=== PATIENT | female | born 1975 | race Hispanic/Latino ===

== ENCOUNTER 2017-06-27 18:32 | Emergency (ER) | payer OTHER ==
[2017-06-27 18:55] VITALS: BP 115/72; PULSE 84; RESP 16; TEMP 98; O2SAT 100
--- NOTE | 2017-06-27 19:04 | ED PDOC ---
Upper Extremity Pain/Injury Time Seen by Provider: 06/27/17 18:55 Chief Complaint (Nursing): Finger,Hand,&Wrist Chief Complaint (Provider): Right Hand Injury History Per: Patient History/Exam Limitations: no limitations Onset/Duration Of Symptoms: Hrs Current Symptoms Are (Timing): Still Present Additional Complaint(s): Neda Barrientos is a 42 year old right-hand dominant female that presents to the ED with a chief complaint of a right hand injury that occurred four hours prior to arrival. Patient reports that she "dropped a shelf on her hand" while at home earlier today, and that she took an Aleve which helped somewhat with pain. PMD: Dr. Immanuel Freed Past Medical History Reviewed: Historical Data, Nursing Documentation, Vital Signs Vital Signs: Last Vital Signs Temp 98.0 F 06/27/17 18:51 Pulse 84 06/27/17 18:51 Resp 16 06/27/17 18:51 BP 115/72 06/27/17 18:51 Pulse Ox 100 06/27/17 18:51 - Medical History PMH: Asthma - Surgical History Other surgeries: Nasal Surgery - Family History Family History: States: No Known Family Hx - Living Arrangements Living Arrangements: With Family - Social History Current smoker - smoking cessation education provided: No Alcohol: None Drugs: Denies - Home Medications Home Medications: Ambulatory Orders Medication Instructions Recorded Ondansetron ODT [Zofran ODT] 4 mg PO TID #21 odt 03/10/16 - Allergies Allergies/Adverse Reactions: Allergies Allergy/AdvReac Type Severity Reaction Status Date / Time codeine Allergy VOMITING Verified 06/27/17 18:51 Review of Systems ROS Statement: Except As Marked, All Systems Reviewed And Found Negative Musculoskeletal: Positive for: Hand Pain (right hand injury) Physical Exam - Reviewed Nursing Documentation Reviewed: Yes Vital Signs Reviewed: Yes - Physical Exam Appears: Positive for: Well, Non-toxic, No Acute Distress Skin: Positive for: Normal Color. Negative for: Rash Eye Exam: Positive for: Normal appearance Pulses-Radial (L): 2+ Pulses-Radial (R): 2+ Extremity: Positive for: Normal ROM (full ROM all digits of right hand ), Tenderness (TTP dorsal aspect right hand. No snuffbox tenderness of right wrist. ), Swelling (Swelling to dorsal aspect of right hand) Neurologic/Psych: Positive for: Alert, Oriented. Negative for: Motor/Sensory Deficits - ECG O2 Sat by Pulse Oximetry: 100 (RA) Pulse Ox Interpretation: Normal - Other Rad Right hand x-ray X-Ray: Interpreted by Me, Viewed By Me X-Ray Interpretation: no fx, no dis Medical Decision Making Medical Decision Making: Impression: 42 year old right hand dominant female with right hand injury Plan: * X-Ray Right Hand * Reevaluation X-Ray shows no sign of fracture. Patient made aware of X-Ray results, all questions answered. Patient advised to keep affected area elevated and iced, and to take Aleve or Motrin for pain as necessary. Advised patient to follow up with hand specialist if symptoms persist. Stable for discharge home. Scribe Attestation: Documented by Bri Bowman, acting as a scribe for Laura Driscoll PA-C. Provider Scribe Attestation: All medical record entries made by the Scribe were at my direction and personally dictated by me. I have reviewed the chart and agree that the record accurately reflects my personal performance of the history, physical exam, medical decision making, and the department course for this patient. I have also personally directed, reviewed, and agree with the discharge instructions and disposition. Disposition - Clinical Impression Clinical Impression: Hand contusion - Patient ED Disposition Is Patient to be Admitted: No Counseled Patient/Family Regarding: Studies Performed, Diagnosis, Need For Followup - Disposition Referrals: Livier Alejandra MD [Staff Provider] - Disposition: Routine/Home Disposition Time: 19:15 Condition: STABLE Additional Instructions: Ice, rest and elevate affected area. Aleve or motrin as needed for pain. Follow up with primary care doctor or with hand specialist as needed for any persistent symptoms. Instructions: Contusion in Adults (ED), Hand Sprain (ED) Forms: [employer] (Indonesian)
--- NOTE | 2017-06-28 07:25 | RAD ---
PROCEDURE: Right hand Radiographs. HISTORY: trauma COMPARISON: None. FINDINGS: BONES: Normal. No fracture. JOINTS: Normal. No dislocation. SOFT TISSUES: Normal. OTHER FINDINGS: None. IMPRESSION: Normal right hand radiographs.
== END 2017-06-27 19:21 | disposition home or self-care (01) ==
LOC: H.ER 18:32
DX: S60.221A Contusion of right hand, initial encounter (principal); W22.8XXA Striking against or struck by other objects, initial encounter; Y92.89 Other specified places as the place of occurrence of the external cause

== ENCOUNTER 2017-12-16 19:51 | Emergency (ER) | payer OTHER ==
[2017-12-16 20:10] VITALS: BP 122/83; PULSE 96; RESP 16; TEMP 97.9; O2SAT 100
== END 2017-12-16 20:45 | disposition left against medical advice (07) ==
LOC: H.ER 19:51
DX: Z02.89 Encounter for other administrative examinations (principal)

== ENCOUNTER 2018-06-17 15:36 | Emergency (ER) | payer OTHER ==
--- NOTE | 2018-06-17 17:01 | ED PDOC ---
Lower Extremity Pain/Injury Time Seen by Provider: 06/17/18 16:35 Chief Complaint (Nursing): Lower Extremity Problem/Injury Additional Complaint(s): 43 yo female, cerebral AVM hx, presents To ED for evaluation of right ankle pain. Patient hit ankle against furniture at home, no deformity. Past Medical History Reviewed: Nursing Documentation, Vital Signs Vital Signs: Last Vital Signs Temp 98.1 F 06/17/18 16:18 Pulse 77 06/17/18 16:18 Resp 16 06/17/18 16:18 BP 109/68 06/17/18 16:18 Pulse Ox 99 06/17/18 16:18 - Medical History PMH: Asthma - Surgical History Surgical History: No Surg Hx - Family History Family History: States: Unknown Family Hx - Living Arrangements Living Arrangements: With Family - Social History Current smoker - smoking cessation education provided: No Alcohol: None Drugs: Denies - Home Medications Home Medications: Ambulatory Orders Medication Instructions Recorded Ondansetron ODT [Zofran ODT] 4 mg PO TID #21 odt 03/10/16 Ibuprofen [Motrin] 600 mg PO Q6 #20 tab 06/17/18 - Allergies Allergies/Adverse Reactions: Allergies Allergy/AdvReac Type Severity Reaction Status Date / Time codeine Allergy VOMITING Verified 06/17/18 16:08 Review of Systems ROS Statement: Except As Marked, All Systems Reviewed And Found Negative Musculoskeletal: Positive for: Other (ankle pain) Physical Exam - Reviewed Nursing Documentation Reviewed: Yes Vital Signs Reviewed: Yes - Physical Exam Appears: Positive for: Well, Non-toxic, No Acute Distress Head Exam: Positive for: ATRAUMATIC, NORMAL INSPECTION, NORMOCEPHALIC Skin: Positive for: Normal Color, Warm, DRY Eye Exam: Positive for: EOMI, Normal appearance, PERRL ENT: Positive for: Normal ENT Inspection Neck: Positive for: Normal, Painless ROM Cardiovascular/Chest: Positive for: Regular Rate, Rhythm Respiratory: Positive for: CNT, Normal Breath Sounds Gastrointestinal/Abdominal: Positive for: Normal Exam, Soft Back: Positive for: Normal Inspection Extremity: Positive for: Normal ROM, Tenderness (over lateral malleolus). Negative for: Calf Tenderness, Deformity, Swelling Neurologic/Psych: Positive for: Alert, Oriented - ECG O2 Sat by Pulse Oximetry: 99 Medical Decision Making Medical Decision Making: Medicated with Motrin Ice pack applied XR: NAD, as read by LEONARDO KRUEGER therapy advised Disposition - Clinical Impression Clinical Impression: Ankle injury - Disposition Disposition: Routine/Home Disposition Time: 17:38 Condition: GOOD Prescriptions: Ibuprofen [Motrin] 600 mg PO Q6 #20 tab Instructions: Contusion (DC) Forms: [employer] ([place]an)
[2018-06-17 18:17] VITALS: BP 106/70; PULSE 78; RESP 19; TEMP 97.6; O2SAT 98
--- NOTE | 2018-06-18 09:52 | RAD ---
Date of service: 06/17/2018 PROCEDURE: Right Ankle Radiographs. HISTORY: pain, struck against bedpost COMPARISON: None FINDINGS: BONES: No acute fracture or destructive bony lesion identified. JOINTS: Normal. No osteoarthritis. Ankle mortise maintained. Talar dome intact SOFT TISSUES: Normal. OTHER FINDINGS: None. IMPRESSION: Normal right ankle radiographs.
== END 2018-06-17 18:17 | disposition home or self-care (01) ==
LOC: H.ER 15:36
DX: S99.911A Unspecified injury of right ankle, initial encounter (principal); W22.8XXA Striking against or struck by other objects, initial encounter; Y92.89 Other specified places as the place of occurrence of the external cause